=== PATIENT | female | born 1990 | race Caucasian/White ===

== ENCOUNTER → 2016-10-26 | Outpatient (CLI) | payer BC ==
--- NOTE | 2016-10-27 15:23 | US ---
EXAMINATION TYPE: US thyroid st tissue head/neck DATE OF EXAM: 10/26/2016 5:05 PM COMPARISON: NONE CLINICAL HISTORY: E04.1 Nontoxic single thyroid nodule. Midline neck tenderness GLAND SIZE: Right Lobe: 5.9 x 2.4 x 1.5 cm Overall Parenchyma: heterogenous Left Lobe: 5.8 x 2.4 x 1.8 cm Overall Parenchyma: heterogeneous Isthmus Thickness: 0.5 cm NODULES RIGHT: # of nodules measured on right: 0 LEFT: # of nodules measured on left: 1 1. 1.1 X 0.6 x 0.4 cm hypoechoic mixed nodule at the lower pole with well-defined margins. This no dule is wider than tall and shows no intranodular vascularity. ISTHMUS: # of nodules measured superior to the isthmus: 1 1. 0.6 X 0.7 x 0.3 cm cystic structure noted anterior to thyroid border. Bilateral neck scanned, no evidence of lymphadenopathy. IMPRESSION: Small bilateral thyroid nodules
== END | disposition home or self-care (01) ==
LOC: RADUSWWP 16:41
PROVIDERS: ATTEND Otolaryngology
DX: E04.2 Nontoxic multinodular goiter (principal)
CPT/HCPCS: 76536

== ENCOUNTER → 2016-10-30 | Outpatient (CLI) | payer BC | END | disposition home or self-care (01) | LOC: LABWHC1 16:18 | PROVIDERS: ATTEND Otolaryngology | DX: E01.0 Iodine-deficiency related diffuse (endemic) goiter (principal) | CPT/HCPCS: 36415; 84439; 84443; 84481; 86376; 86800 ==

== ENCOUNTER 2019-07-28 11:46 | Inpatient (IN) | payer BC ==
[2019-08-04] MEDS ORDERED: DINOPROSTONE 10 MG INSERT.ER VAGINAL ONE (19:47)
[2019-08-04] MEDS ORDERED: TERBUTALINE 1 MG/ML VIAL SQ PRN (20:13)
[2019-08-04] MEDS ORDERED: CARBOPROST TROMETHAMINE 250 MCG/ML 1 ML AMP IM PRN (20:13)
[2019-08-04] MEDS ORDERED: METHYLERGONOVINE 0.2 MG/ML 1 ML AMP IM PRN (20:13)
[2019-08-04] MEDS ORDERED: LIDOCAINE 0.5% (PF) 5 MG/ML (50 ML SDV) SQ PRN (20:13)
[2019-08-04] MEDS ORDERED: OXYTOCIN 10 UNIT/ML 1 ML VIAL IM PRN (20:13)
[2019-08-04] MEDS ORDERED: BUTORPHANOL 1 MG/ML 1 ML VIAL IV PRN (20:21)
--- NOTE | 2019-08-04 20:21 | P.HPOB ---
History of Present Illness H&P Date: 08/04/19 Chief Complaint: 41-0/7 weeks, unfavorable cervix, induction The patient is a 29-year-old 1 para 0 admitted at 41-0/7 as established by last menstrual period and confirmed by 19 week ultrasound. She is admitted for Cervidil cervical ripening to be followed by Pitocin induction if necessary. Her has been entirely uncomplicated aside from a finding of a large for gestational age fetus growing at the 94th percentile at 35 weeks. Group B strep status is negative. On labor and delivery, all signs are reassuring. Obstetrical history: 1 para 0 with current statistics listed in history of present illness. EDC of 07/28/2019 was established by last menstrual period and confirmed by 19 week ultrasound. Laboratory workup demonstrates a blood type of A+ with a negative antibody screen. Rubella status is immune. The remainder of the laboratory workup was within normal limits. One hour Glucola was normal and group B strep status is negative. Gynecologic history: Unremarkable with no history of any infections to include STDs. Review of Systems Review of systems is confined to history of present illness. Past Medical History Past Medical History: No Reported History Additional Past Medical History / Comment(s): CONSTIPATION , BLOOD IN STOOL. History of Any Multi-Drug Resistant Organisms: None Reported Additional Past Surgical History / Comment(s): TUBES IN EARS A CHILD, WISDOM TEETH Past Anesthesia/Blood Transfusion Reactions: Motion Sickness, No Reported Reaction Past Psychological History: No Psychological Hx Reported Smoking Status: Never smoker Past Alcohol Use History: Rare Past Drug Use History: None Reported - Past Family History Mother Family Medical History: No Reported History Medications and Allergies Home Medications Medication Instructions Recorded Confirmed Type Pnv No.95/Ferrous Fum/Folic AC 1 tab .ROUTE ONCE 08/04/19 08/04/19 History [ Multivitamin Tablet] Allergies Allergy/AdvReac Type Severity Reaction Status Date / Time No Known Allergies Allergy Verified 08/04/19 19:16 Exam Vital Signs Temp Pulse Resp BP Pulse Ox 08/04/19 19:18 97.5 F L 79 16 128/73 97 08/04/19 19:14 97.5 F L 79 16 128/73 97 Intake and Output 08/04/19 08/04/19 08/04/19 06:59 14:59 22:59 Other: Weight 98.883 kg In general, this is a well-developed, well-nourished white female in no acute distress. Her heart has a regular rhythm and rate without murmur. Her lungs are clear to auscultation bilaterally in all loomis. Her abdomen is gravid, nondistended, has normal active bowel sounds, is soft, nontender, and without any palpable masses aside from the uterine fundus. Her extremities are without any cyanosis, clubbing, or significant edema and are nontender to palpation bi laterally. Digital cervical examination demonstrates her cervix to be 1 cm dilated, approximately 50% effaced, with the vertex in presentation at -3 station. The cervix is quite posterior as well. Cervidil is placed in the posterior fornix behind the cervix in standard fashion. Assessment and Plan (1) Unfavorable cervix in term Current Visit: Yes Status: Acute Code(s): O34.40 - MATERNAL CARE FOR OTH ABNLT OF CERVIX, UNSP TRIMESTER SNOMED Code(s): 613227096 (2) Post-dates Current Visit: Yes Status: Acute Code(s): O48.0 - POST-TERM SNOMED Code(s): 53332327 Plan: The patient has been admitted for Cervidil cervical ripening to be followed by Pitocin induction is necessary. She will have close maternal and surveillance and expectant management will be practiced. An IV has been established for whenever it becomes necessary. She is a good candidate for either IV or epidural analgesia, whichever she may choose. The risks and complications of the induction process have been thoroughly discussed and she understands the risk for tachysystole. She also understands the potential risk for delivery, especially given the estimated size of the fetus.
[2019-08-04 20:28] LABS: Basophils % (A) 0 %; Eosinophils # (A) 0.1 k/uL (0-0.7); Eosinophils % (A) 1 %; HCT 38.8 % (34.0-46.0); HGB 12.8 gm/dL (11.4-16.0); Lymphocytes # (A) 1.9 k/uL (1.0-4.8); Lymphocytes % (A) 17 %; MCH 28.2 pg (25.0-35.0); MCV 85.3 fL (80.0-100.0); Mean Platelet Volume 7.1; Monocytes # (A) 0.8 k/uL (0-1.0); Monocytes % (A) 7 %; Neutrophils # (A) 8.4 k/uL (1.3-7.7); Neutrophils % (A) 73 %; Platelet Count 367 k/uL (150-450); RBC 4.54 m/uL (3.80-5.40); WBC 11.5 k/uL (3.8-10.6)
[2019-08-04] MEDS: guaiFENesin SYRUP 100MG/5ML 200 MG/10 ML CUP PO PRN (22:43)
[2019-08-04] MEDS: BENZOCAINE/MENTHOL LOZENG 1 EACH LOZENGE MUCOUS MEM PRN (22:44)
[2019-08-05] MEDS: OXYTOCIN 30 UNITS/500 ML NS 30 UNIT in SALINE 1 500ML.BAG IV SCH (05:38)
[2019-08-05] MEDS: LACTATED RINGERS 1,000 ML IV SCH ×2 (09:29→23:00)
[2019-08-05] MEDS ORDERED: fentaNYL (PF) 50 MCG/ML 5 ML AMP ONE (10:12)
[2019-08-05] MEDS ORDERED: ROPIVACAINE 5MG/ML 20ML VIAL ONE (10:12)
[2019-08-05] MEDS ORDERED: SODIUM CHLORIDE 0.9% 100 ML BAG ONE (10:12)
[2019-08-05] MEDS ORDERED: LACTATED RINGERS 1,000 ML IV ONE (16:48)
[2019-08-05] MEDS ORDERED: CITRIC ACID-SODIUM CITRATE 15 ML CUP PO ONE (16:48)
[2019-08-05] MEDS ORDERED: PROPOFOL 10 MG/ML 20 ML VIAL IV ONE (16:59)
[2019-08-05] MEDS ORDERED: MORPHINE SULFATE (PF) 0.3 MG/0.3 ML SYR ONE (16:59)
[2019-08-05] MEDS ORDERED: KETOROLAC 30 MG/ML 1 ML VIAL ONE (16:59)
[2019-08-05] MEDS ORDERED: SUCCINYLCHOLINE CHLORIDE 100 MG/5 ML SYR IV ONE (16:59)
[2019-08-05] MEDS ORDERED: OXYTOCIN 10 UNIT/ML 1 ML VIAL ONE (16:59)
[2019-08-05] MEDS ORDERED: ONDANSETRON 4 MG/2 ML VIAL ONE (16:59)
[2019-08-05] MEDS ORDERED: ZOLPIDEM 5 MG TAB PO PRN (18:03)
[2019-08-05] MEDS ORDERED: HYDROcodone/APAP 7.5-325MG 1 EACH TAB PO PRN (18:03)
[2019-08-05] MEDS ORDERED: diphenhydrAMINE 50 MG CAP PO PRN (18:03)
[2019-08-05] MEDS ORDERED: LANOLIN CREAM 5 GM TUBE TOPICAL PRN (18:03)
[2019-08-05] MEDS ORDERED: diphenhydrAMINE 25 MG CAP PO PRN (18:03)
[2019-08-05] MEDS ORDERED: ONDANSETRON 4 MG/2 ML VIAL IVP PRN (18:03)
[2019-08-05] MEDS ORDERED: SIMETHICONE 80 MG CHEWABLE PO PRN (18:03)
[2019-08-05] MEDS ORDERED: ACETAMINOPHEN TAB 325 MG TAB PO PRN (18:03)
[2019-08-05] MEDS ORDERED: METOCLOPRAMIDE 5 MG/ML 2 ML VIAL IVP PRN (18:03)
[2019-08-05] MEDS ORDERED: diphenhydrAMINE 50 MG/ML 1 ML VIAL IVP PRN ×2 (18:03)
[2019-08-05] MEDS ORDERED: NALOXONE 0.4 MG/ML 1 ML VIAL IV PRN (18:03)
--- NOTE | 2019-08-05 18:13 | P.OP ---
Date of Procedure: 08/05/19 Preoperative Diagnosis: #1. 41 and one sevenths weeks, arrest of descent in the second stage #2. intolerance of the second stage of labor #3. Suspected macrosomia Postoperative Diagnosis: Same plus #4. left occiput posterior position Procedure(s) Performed: #1. Primary low-transverse section Anesthesia: GETA, other (Failed epidural) Surgeon: Reza Turner Waist Pleater #1: Dary Jacobs Estimated Blood Loss (ml): 400 IV fluids (ml): 1,200 Urine output (ml): 200 Pathology: none sent Condition: stable Disposition: floor Operative Findings: Preoperatively, the patient had reached complete and was pushing relatively effectively though there was still a moderate amount of pushing remaining. The station was at +2 or slightly lower. However, following each push, heart tones elevated into the 190-200 range demonstrating intolerance of labor. As she was still somewhat remote from delivery and intolerance was noted, the decision was made to proceed with primary low transverse section. She was taken to the operating room where she was delivered of a viable 9 lbs. 1 oz. baby girl with Apgars of 9 at 1 minute and 9 at 5 minutes delivered in the left occiput posterior position. The head was deep within the pelvis with a significant amount At. The placenta was delivered manually, intact, and grossly normal with a grossly normal three-vessel cord. The uterus, tubes, and ovaries were entirely normal to inspection aside from some endosalpingiosis on the posterior side of the uterus. There was some bloody urine noted at the time of delivery, almost certainly secondary to my delivering and deep in the pelvis between the head and the Farrell catheter bulb. By the end of the case, the urine had cleared and inspection of the bladder demonstrated to be far distal from the site of the incisions. Description of Procedure: The patient was prepped and draped in usual fashion after epidural anesthesia was bolused by the anesthesiologist. After approximately 10 minutes, adequate levels of anesthesia could not be obtained and the decision was made proceed with general endotracheal anesthesia. Following the placement of the endotracheal tube, a Pfannenstiel incision was made and extended into the abdominal cavity without difficulty. The bladder perineum was elevated, incised, and reflected distally. A 2 cm incision was made in the transverse plane of the lower uterine segment to enter the uterus at which time there was clear but somewhat turbid-appearing fluid. The incision was extended in both directions using the bandage scissors. The head was encountered deep within the pelvis and was elevated directly upward until it was able to be flexed forward and through the incision where, upon delivery, the nose and mouth were thoroughly suctioned. The remainder of the was delivered onto the field where the cord was doubly clamped, cut, and the infant passed resuscitativ e measures with weight and Apgars as noted above. The placenta was delivered manually and intact as noted above. The uterus was exteriorized and the interior cavity of the uterus swept of any remaining placental or membranous fragments. The margins of the incision were noted to be extended slightly on both sides but not into the uterine vessels nor towards the bladder. The margins were grasped with Moore clamps and the incision closed in 2 layers. The first layer was a running locking stitch of 0 chromic catgut from margin to margin. The second layer was a running imbricating layer of 0 chromic catgut from margin to margin. Examination of the incision appeared to demonstrate excellent hemostasis. The posterior cul-de-sac was suctioned with a guard and the uterine and ovarian findings were as noted above. Uterus was replaced within the abdominal cavity and the gutters were swept of any remaining blood, fluid, or clot. Reexamination of the uterine incision demonstrated excellent hemostasis. The parietal peritoneum was loosely reapproximated in the layer of muscles examined and made hemostatic with the Bovie. The fascia was closed with a single running stitch of 0 Vicryl proceeding from lateral margin to lateral margin. The subcutaneous tissues were examined and made hemostatic with the Bovie then reapproximated with a running stitch of 3-0 plain catgut. The skin was reapproximated with a running subcuticular stitch of 4-0 Vicryl. This was followed by half-inch Steri-Strips placed with Mastisol. Estimated blood loss for the case was approximate 400 mL's. There were no complications aside from the failed epidural. All sponge, instrument, and needle counts were correct. The patient tolerated the procedure well and proceeded to the recovery room in stable condition.
[2019-08-05] MEDS ORDERED: OXYTOCIN 20 UNITS/1000 ML NS 1,000 ML IV SCH (18:15)
[2019-08-05] MEDS: BENZOCAINE/MENTHOL LOZENG 1 EACH LOZENGE MUCOUS MEM PRN ×2 (19:00→23:08)
[2019-08-05] MEDS: guaiFENesin SYRUP 100MG/5ML 200 MG/10 ML CUP PO PRN (23:09)
[2019-08-06] MEDS: KETOROLAC 30 MG/ML 1 ML VIAL IVP PRN ×2 (00:03→06:01)
[2019-08-06 06:53] LABS: Basophils % (A) 0 %; Eosinophils # (A) 0.1 k/uL (0-0.7); Eosinophils % (A) 0 %; HCT 34.6 % (34.0-46.0); HGB 11.4 gm/dL (11.4-16.0); Lymphocytes # (A) 1.3 k/uL (1.0-4.8); Lymphocytes % (A) 7 %; MCH 28.1 pg (25.0-35.0); MCV 85.1 fL (80.0-100.0); Mean Platelet Volume 7.1; Monocytes # (A) 0.9 k/uL (0-1.0); Monocytes % (A) 5 %; Neutrophils # (A) 14.6 k/uL (1.3-7.7); Neutrophils % (A) 85 %; Platelet Count 311 k/uL (150-450); RBC 4.07 m/uL (3.80-5.40); RDW 14.2 % (11.5-15.5); WBC 17.2 k/uL (3.8-10.6)
[2019-08-06] MEDS: SENNOSIDES-DOCUSATE SODIUM 1 EACH TAB PO SCH ×3 (07:14→20:12)
[2019-08-06] MEDS: BENZOCAINE/MENTHOL LOZENG 1 EACH LOZENGE MUCOUS MEM PRN ×3 (08:11→22:48)
[2019-08-06] MEDS: guaiFENesin SYRUP 100MG/5ML 200 MG/10 ML CUP PO PRN (08:12)
--- NOTE | 2019-08-06 08:46 | P.PNOBGPC ---
Subjective - Subjective Patient reports: Reports appetite normal, Reports voiding normally, Reports pain well controlled, Reports ambulating normally : doing well, nursing well Objective - Vital Signs Latest vital signs: Vital Signs Temp Pulse Resp BP Pulse Ox 08/06/19 07:33 97.7 F 84 17 119/62 94 L 08/06/19 04:00 97.8 F 89 16 137/83 08/06/19 00:00 98.8 F 104 H 16 123/78 96 08/05/19 19:59 97.8 F 85 16 127/72 96 08/05/19 19:29 98.5 F 93 16 134/75 97 08/05/19 18:59 85 16 134/68 97 08/05/19 18:44 83 16 140/73 97 08/05/19 18:29 93 16 126/73 97 08/05/19 18:14 93 16 138/68 97 08/05/19 17:59 98.2 F 95 18 128/63 97 Intake and Output 08/05/19 08/06/19 08/06/19 22:59 06:59 14:59 Intake Total 1000 Output Total 648 350 Balance -648 -350 1000 Intake: IV 1000 Invasive Line 1 1000 Output: Urine 400 350 Estimated Blood Loss 248 Other: Voiding Method Indwelling Catheter - Exam Extremities: Present: normal Abdomen: Present: normal appearance, soft. Absent: distention, tenderness Incision: Present: normal, dry, intact Uterus: Present: normal, firm (The uterine fundus is tonic and appropriately tender around the umbilicus) - Labs Labs: Abnormal Lab Results - Last 24 Hours (Table) 08/06/19 Range/Units 06:21 WBC 17.2 H (3.8-10.6) k/uL Neutrophils # 14.6 H (1.3-7.7) k/uL Assessment and Plan (1) Unfavorable cervix in term Current Visit: Yes Status: Acute Code(s): O34.40 - MATERNAL CARE FOR OTH ABNLT OF CERVIX, UNSP TRIMESTER SNOMED Code(s): 642572464 (2) Post-dates Current Visit: Yes Status: Acute Code(s): O48.0 - POST-TERM SNOMED Code(s): 19755790 (3) Status post section Current Visit: Yes Status: Acute Code(s): Z98.891 - HISTORY OF UTERINE SCAR FROM PREVIOUS SURGERY SNOMED Code(s): 833687923 Plan: Continue routine postoperative care. I strongly encouraged the patient in the hallways at least 4 times daily. Her diet will be advanced to regular. Anticipate possible discharge home tomorrow pending no complications.
[2019-08-06] MEDS: IBUPROFEN 600 MG TAB PO PRN (12:05)
[2019-08-06] MEDS: HYDROcodone/APAP 5-325MG 1 EACH TAB PO PRN (15:10)
[2019-08-06] MEDS: LACTATED RINGERS 1,000 ML IV SCH ×4 (20:09→20:54)
[2019-08-06] MEDS: OXYTOCIN 30 UNITS/500 ML NS 30 UNIT in SALINE 1 500ML.BAG IV SCH (20:11)
[2019-08-07 00:39] VITALS: BP 140/75
[2019-08-07] MEDS: IBUPROFEN 600 MG TAB PO PRN ×2 (01:16→07:41)
[2019-08-07] MEDS: SENNOSIDES-DOCUSATE SODIUM 1 EACH TAB PO SCH (07:42)
[2019-08-07 08:04] VITALS: PULSE 142; RESP 52; TEMP 98.7
--- NOTE | 2019-08-07 08:36 | P.DS ---
Providers Date of admission: 08/04/19 19:09 Expected date of discharge: 08/07/19 Attending physician: Reza Turner Primary care physician: Farzana Junior - Discharge Diagnosis(es) (1) Unfavorable cervix in term Current Visit: Yes Status: Acute (2) Post-dates Current Visit: Yes Status: Acute (3) Status post section Current Visit: Yes Status: Acute Hospital Course: The patient is a 29-year-old 1 para 0 admitted at 41-0/7 weeks by good dating parameters perches admitted for Cervidil cervical ripening followed by Pitocin induction. Her was uncomplicated and group B strep status is negative. She did have a baby growing at the 94th percentile at 35 weeks. On labor and delivery, all signs reassuring. She had Cervidil placed which remained in place for approximately 6-8 hours after which time it actually fell out. She had Pitocin augmentation started early in the morning after which time artificial rupture of membranes is carried out demonstrating clear fluid. She made progress in the active phase of labor and had an epidural catheter placed. She ultimately progressed to complete and began pushing at which time the fetus began to have significant overshot on heart tones after each contraction with heart tones rising into the 190s to 200s. As she was still somewhat remote from delivery, the decision was made to proceed to section. She was taken the operating room where she underwent primary low-transverse section was delivered of a viable 9 lbs. 1 oz. baby girl with Apgars of 9 at 1 minute and 9 at 5 minutes. Her and postoperative courses were unremarkable with vital signs being stable and her temperature was afebrile throughout. She was deemed stable for discharge on postoperative day #2 was discharged home to follow-up in the office in 2 weeks for an incision check and 6 weeks routinely. Discharge instructions included calling for any significantly increased bleeding or foul-smelling lochia, significantly increased fever abdominal pain, perineal complaints, breast complaints, incisional complaints, or anything else that concerned her. She is additionally instructed to have nothing in vagina for at least 6 weeks time to include intercourse. She understood all of her instructions and agrees to follow up as noted above. Discharge medications included a prescription for Tylenol 3, 1-2 by mouth every 6 hours when necessary pain, #20 dispensed with no refills. She was additionally to use [id number]-[id number]-idfarls analgesics as needed. She was also to continue to take vitamins as she has opted to breast-feed. Maternal blood type is A+ and rubella status is immune. Discharge hemoglobin and hematocrit were 11.4 and 34.6 respectively. Procedures: #1. Cervidil cervical ripening #2. Pitocin augmentation of #3. Artificial rupture of membranes #4. Epidural analgesia #5. Primary low-transverse section Patient Condition at Discharge: Good Plan - Discharge Summary New Discharge Prescriptions: No Action Pnv No.95/Ferrous Fum/Folic AC [ Multivitamin Tablet] 1 tab .ROUTE ONCE Discharge Medication List Pnv No.95/Ferrous Fum/Folic AC [ Multivitamin Tablet] 1 tab .ROUTE ONCE 08/04/19 [History] Follow up Appointment(s)/Referral(s): Reza Turner MD [STAFF PHYSICIAN] - 2 Weeks Discharge Disposition: HOME SELF-CARE
[2019-08-07] MEDS: HYDROcodone/APAP 5-325MG 1 EACH TAB PO PRN (12:19)
== END 2019-08-07 13:20 | disposition home or self-care (01) | DRG 788 ==
LOC: 4FBP 08-04 19:09
PROVIDERS: ADMIT Obstetrics & Gynecology; ATTEND Obstetrics & Gynecology
PROC: 3E033VJ Introduction of Other Hormone into Peripheral Vein, Percutaneous Approach (ICD-10-PCS; 2019-08-04)
PROC: 3E0P7VZ Introduction of Hormone into Female Reproductive, Via Natural or Artificial Opening (ICD-10-PCS; 2019-08-04)
PROC: 3E0R3BZ Introduction of Anesthetic Agent into Spinal Canal, Percutaneous Approach (ICD-10-PCS; principal; 2019-08-05 17:16)
PROC: 10D00Z1 Extraction of Products of Conception, Low, Open Approach (ICD-10-PCS; principal; 2019-08-05 17:16)
PROC: 00HU33Z Insertion of Infusion Device into Spinal Canal, Percutaneous Approach (ICD-10-PCS; principal; 2019-08-05 17:16)
PROC: 10907ZC Drainage of Amniotic Fluid, Therapeutic from Products of Conception, Via Natural or Artificial Opening (ICD-10-PCS; principal; 2019-08-05 17:16)
DX: O48.0 Post-term pregnancy (principal); K21.9 Gastro-esophageal reflux disease without esophagitis; O99.62 Diseases of the digestive system complicating childbirth; O36.63X0 Maternal care for excessive fetal growth, third trimester, not applicable or unspecified; O62.1 Secondary uterine inertia; O77.9 Labor and delivery complicated by fetal stress, unspecified; N94.89 Other specified conditions associated with female genital organs and menstrual cycle; R31.9 Hematuria, unspecified; Z3A.41 41 weeks gestation of pregnancy; Z37.0 Single live birth; Z79.899 Other long term (current) drug therapy; Z87.19 Personal history of other diseases of the digestive system
CPT/HCPCS: 85025; 86850; 86900; 86901

== ENCOUNTER 2021-03-15 11:11 | Emergency (ER) | payer BC ==
[2021-03-15 11:28] VITALS: RESP 18
[2021-03-15] MEDS ORDERED: SODIUM CHLORIDE 0.9% 1,000 ML IV STA (12:19)
[2021-03-15] MEDS ORDERED: ONDANSETRON 4 MG/2 ML VIAL IVP STA (12:19)
[2021-03-15 12:43] LABS: Basophils # (A) 0.1 k/uL (0-0.2); Basophils % (A) 0 %; Eosinophils # (A) 0.1 k/uL (0-0.7); Eosinophils % (A) 1 %; HCT 40.9 % (34.0-46.0); HGB 13.7 gm/dL (11.4-16.0); Lymphocytes # (A) 1.6 k/uL (1.0-4.8); Lymphocytes % (A) 15 %; MCH 28.7 pg (25.0-35.0); MCHC 33.6 g/dL (31.0-37.0); MCV 85.5 fL (80.0-100.0); Mean Platelet Volume 6.5; Monocytes # (A) 0.6 k/uL (0-1.0); Monocytes % (A) 5 %; Neutrophils # (A) 8.7 k/uL (1.3-7.7); Neutrophils % (A) 78 %; Platelet Count 389 k/uL (150-450); RBC 4.79 m/uL (3.80-5.40); RDW 11.7 % (11.5-15.5); WBC 11.1 k/uL (3.8-10.6)
[2021-03-15 12:57] LABS: ALT 14 U/L (4-34); AST 20 U/L (14-36); African American GFR (CKD) >90 (>60 ml/min/1.73 sqM); Albumin 4.4 g/dL (3.5-5.0); Alkaline Phosphatase 55 U/L (38-126); Anion Gap 10 mmol/L; Blood Urea Nitrogen 10 mg/dL (7-17); Calcium 9.8 mg/dL (8.4-10.2); Carbon Dioxide 25 mmol/L (22-30); Chloride 102 mmol/L (98-107); Glucose 88 mg/dL (74-99); Non-African American GFR(CKD) >90 (>60 ml/min/1.73 sqM); Potassium 4.3 mmol/L (3.5-5.1); Sodium 137 mmol/L (137-145); Total Bilirubin 1.3 mg/dL (0.2-1.3); Total Protein 7.3 g/dL (6.3-8.2)
[2021-03-15] MEDS ORDERED: METOCLOPRAMIDE 5 MG/ML 2 ML VIAL IVP STA (13:13)
[2021-03-15 13:37] LABS: Appearance,Urine Cloudy (Clear); Bacteria,Urine Moderate /hpf; Bilirubin,Urine Negative (Negative); Blood,Urine Negative (Negative); Color,Urine Yellow; Glucose,Urine (UA) Negative (Negative); Ketones,Urine 3+ (Negative); Leukocyte Esterase,Urine Large (Negative); Mucus,Urine Many /hpf; Nitrite,Urine Negative (Negative); PH, Urine 5.5 (5.0-8.0); Protein,Urine 1+ (Negative); RBC,Urine 11 /hpf (0-5); Specific Gravity,Urine 1.034 (1.001-1.035); Squamous Epithelial Cell,Urine 3 /hpf (0-4); WBC,Urine 36 /hpf (0-5)
--- NOTE | 2021-03-15 14:23 | ED ---
Nausea/Vomiting/Diarrhea HPI - General Chief complaint: Nausea/Vomiting/Diarrhea Stated complaint: 9wks preg, vomiting Time Seen by Provider: 03/15/21 11:50 Source: patient, RN notes reviewed, old records reviewed Mode of arrival: ambulatory Limitations: no limitations - History of Present Illness Initial comments: Patient is a 30-year-old female presenting to the emergency department, currently 8 weeks , presenting for nausea and vomiting over the past few days. She states she's been having some mild nausea with this but has not been vomiting until about 3 days ago. . She has been unable keep down any liquid or food for the last 3 days. She denies any abdominal pain, no vaginal bleeding. She believes she is about 8 weeks along, has an appointment with her COMMUTATOR OPERATOR in a few weeks. She'll be seeing Dr. Turner's group. He denies history of abdominal surgeries. She denies any dysuria or frequency, no diarrhea. She denies any fevers or chills, no cough or congestion, no chest pain or shortness of breath. He has no further complaints at this time. Her vitals are stable upon arrival. - Related Data Home Medications Medication Instructions Recorded Confirmed Doxylamine Succinate [Unisom] 25 mg PO HS PRN 03/15/21 03/15/21 Previous Rx's Medication Instructions Recorded Cephalexin [Keflex] 500 mg PO Q6HR 7 Days #28 cap 03/15/21 Ondansetron Odt [Zofran Odt] 4 mg PO Q8HR PRN #10 tab 03/15/21 Allergies Allergy/AdvReac Type Severity Reaction Status Date / Time No Known Allergies Allergy Verified 03/15/21 13:15 Review of Systems ROS Statement: Those systems with pertinent positive or pertinent negative responses have been documented in the HPI. ROS Other: All systems not noted in ROS Statement are negative. Past Medical History Past Medical History: No Reported History Additional Past Medical History / Comment(s): CONSTIPATION , BLOOD IN STOOL. History of Any Multi-Drug Resistant Organisms: None Reported Additional Past Surgical History / Comment(s): TUBES IN EARS A CHILD, WISDOM TEETH Past Anesthesia/Blood Transfusion Reactions: Motion Sickness, No Reported Reaction Past Psychological History: No Psychological Hx Reported Smoking Status: Never smoker Past Alcohol Use History: Rare Past Drug Use History: None Reported - Past Family History Mother Family Medical History: No Reported History General Exam - General Exam Comments Initial Comments: GENERAL: Patient is well-developed and well-nourished. Patient is nontoxic and in no acute distress. HEAD: Atraumatic, normocephalic. EYES: Pupils equal round and reactive to light, extraocular movements intact, sclera anicteric, conjunctiva are normal. Eyelids were unremarkable. ENT: Nares patent, oropharynx clear without exudates. Moist mucous membranes. NECK: Normal range of motion, supple without lymphadenopathy or JVD. LUNGS: Unlabored respirations. Breath sounds clear to auscultation bilaterally and equal. No wheezes rales or rhonchi. HEART: Regular rate and rhythm without murmurs, rubs or gallops. ABDOMEN: Soft, nontender, normoactive bowel sounds. No guarding, no rebound. No masses appreciated. : Deferred MUSCULOSKELETAL: Normal extremities with adequate strength and normal range of motion, no pitting or edema. No clubbing or cyanosis. NEUROLOGICAL: Patient is alert and oriented x 3. SKIN: Warm, Dry, normal turgor, no rashes or lesions noted. Limitations: no limitations Course Vital Signs 03/15/21 11:23 Temperature 97.9 F Pulse Rate 74 Respiratory 18 Rate Blood Pressure 114/76 O2 Sat by Pulse 98 Oximetry Medical Decision Making - Medical Decision Making Patient is a 30-year-old female, currently 8 weeks , presenting for nausea and vomiting for the last 3 days. No fevers, vitals are stable. No ab dominal pain or vaginal bleeding. , COMMUTATOR OPERATOR is Dr. Turner. Labs are showing a slight white count 11.1, so most likely reactive, anything else is within normal limits. Urine shows 3+ ketones, 36 WBCs and moderate bacteria. Urine culture is pending. She did receive fluids and Zofran, she reports improvement in her symptoms. She is tolerating water and crackers at this time. Patient will be treated for UTI and given Zofran to go home with. She'll follow-up with her COMMUTATOR OPERATOR. She is agreeable to this and is stable for discharge. Case discussed with Dr. Kwon. - Lab Data Result diagrams: 03/15/21 12:22 03/15/21 12:22 Lab Results 03/15/21 03/15/21 03/15/21 Range/Units 12:22 12:22 12:22 WBC 11.1 H (3.8-10.6) k/uL RBC 4.79 (3.80-5.40) m/uL Hgb 13.7 (11.4-16.0) gm/dL Hct 40.9 (34.0-46.0) % MCV 85.5 (80.0-100.0) fL MCH 28.7 (25.0-35.0) pg MCHC 33.6 (31.0-37.0) g/dL RDW 11.7 (11.5-15.5) % Plt Count 389 (150-450) k/uL MPV 6.5 Neutrophils % 78 % Lymphocytes % 15 % Monocytes % 5 % Eosinophils % 1 % Basophils % 0 % Neutrophils # 8.7 H (1.3-7.7) k/uL Lymphocytes # 1.6 (1.0-4.8) k/uL Monocytes # 0.6 (0-1.0) k/uL Eosinophils # 0.1 (0-0.7) k/uL Basophils # 0.1 (0-0.2) k/uL Sodium 137 (137-145) mmol/L Potassium 4.3 (3.5-5.1) mmol/L Chloride 102 (98-107) mmol/L Carbon Dioxide 25 (22-30) mmol/L Anion Gap 10 mmol/L BUN 10 (7-17) mg/dL Creatinine 0.56 (0.52-1.04) mg/dL Est GFR (CKD-EPI)AfAm >90 (>60 ml/min/1.73 sqM) Est GFR (CKD-EPI)NonAf >90 (>60 ml/min/1.73 sqM) Glucose 88 (74-99) mg/dL Calcium 9.8 (8.4-10.2) mg/dL Total Bilirubin 1.3 (0.2-1.3) mg/dL AST 20 (14-36) U/L ALT 14 (4-34) U/L Alkaline Phosphatase 55 (38-126) U/L Total Protein 7.3 (6.3-8.2) g/dL Albumin 4.4 (3.5-5.0) g/dL Urine Color Yellow Urine Appearance Cloudy H (Clear) Urine pH 5.5 (5.0-8.0) Ur Specific [place] 1.034 (1.001-1.035) Urine Protein 1+ H (Negative) Urine Glucose (UA) Negative (Negative) Urine Ketones 3+ H (Negative) Urine Blood Negative (Negative) Urine Nitrite Negative (Negative) Urine Bilirubin Negative (Negative) Urine Urobilinogen 2.0 (<2.0) mg/dL Ur Leukocyte Esterase Large H (Negative) Urine RBC 11 H (0-5) /hpf Urine WBC 36 H (0-5) /hpf Ur Squamous Epith Cells 3 (0-4) /hpf Urine Bacteria Moderate H (None) /hpf Urine Mucus Many H (None) /hpf Disposition Clinical Impression: Dehydration, Nausea and vomiting during , UTI (urinary tract infection) Disposition: HOME SELF-CARE Condition: Stable Instructions (If sedation given, give patient instructions): Nausea and Vomiting in (ED) Additional Instructions: Please return to the Emergency Department if symptoms worsen or any other concerns. May take Zofran every 8 hours for nausea. Take antibiotic as prescribed. Follow-up with your COMMUTATOR OPERATOR. Prescriptions: Cephalexin [Keflex] 500 mg PO Q6HR 7 Days #28 cap Ondansetron Odt [Zofran Odt] 4 mg PO Q8HR PRN #10 tab PRN Reason: Nausea Is patient prescribed a controlled substance at d/c from ED?: No Referrals: Farzana Junior DO [Primary Care Provider] - 1-2 days Reza Turner MD [STAFF PHYSICIAN] - 1-2 days Time of Disposition: 14:31
[2021-03-15 14:57] VITALS: BP 103/53; PULSE 63; TEMP 98
== END 2021-03-15 14:56 | disposition home or self-care (01) ==
LOC: EC 11:11
DX: O21.9 Vomiting of pregnancy, unspecified (principal); O23.41 Unspecified infection of urinary tract in pregnancy, first trimester; O99.281 Endocrine, nutritional and metabolic diseases complicating pregnancy, first trimester; E86.0 Dehydration; Z3A.08 8 weeks gestation of pregnancy
CPT/HCPCS: 99284; 96374; 96375; 36415; 80053; 85025; 81001; 84702; 87086; J2765; J2405

== ENCOUNTER 2021-10-03 07:40 | Inpatient (IN) | payer BC ==
[2021-09-30 14:27] VITALS: BMI 32.1
[~2021-10-03 07:40] MED LIST: LACTATED RINGERS 1,000 ML BAG IV ONE
[2021-10-03 08:36] LABS: Basophils # (A) 0.1 k/uL (0-0.2); Basophils % (A) 1 %; Eosinophils # (A) 0.3 k/uL (0-0.7); Eosinophils % (A) 3 %; HCT 41.2 % (34.0-46.0); HGB 13.4 gm/dL (11.4-16.0); Lymphocytes # (A) 1.8 k/uL (1.0-4.8); Lymphocytes % (A) 17 %; MCH 29.2 pg (25.0-35.0); MCHC 32.6 g/dL (31.0-37.0); MCV 89.8 fL (80.0-100.0); Mean Platelet Volume 6.7; Monocytes # (A) 0.6 k/uL (0-1.0); Monocytes % (A) 5 %; Neutrophils # (A) 7.4 k/uL (1.3-7.7); Neutrophils % (A) 73 %; Platelet Count 381 k/uL (150-450); RBC 4.59 m/uL (3.80-5.40); RDW 12.7 % (11.5-15.5); WBC 10.3 k/uL (3.8-10.6)
[2021-10-03] MEDS ORDERED: ONDANSETRON 4 MG/2 ML VIAL ONE (09:44)
[2021-10-03] MEDS ORDERED: MORPHINE SULFATE (PF) 0.3 MG/0.3 ML SYR ONE (09:44)
[2021-10-03] MEDS ORDERED: NALBUPHINE 10 MG/ML (1 ML AMP) ONE (09:44)
[2021-10-03] MEDS ORDERED: PHENYLEPHRINE-0.9% NACL SYG 1,000 MCG/10 ML SYRINGE ONE (09:44)
[2021-10-03] MEDS ORDERED: ePHEDrine 50 MG/ML 1 ML VIAL ONE (09:44)
[2021-10-03] MEDS ORDERED: OXYTOCIN 30 UNITS/500 ML NS BAG IV ONE (09:44)
[2021-10-03] MEDS ORDERED: KETOROLAC 15 MG/ML 1 ML VIAL ONE (09:44)
--- NOTE | 2021-10-03 10:31 | HP ---
HISTORY AND PHYSICAL DATE OF DICTATION AND DATE OF ADMISSION: 10/03/2021 HISTORY OF PRESENT ILLNESS: The patient is a 31-year-old 2, para 1-0-0-1, admitted at 39 weeks of gestation as established by 11-week ultrasound. She is admitted for repeat low transverse section, having had a previous section. Her has been entirely uncomplicated and group B strep status is negative. On Labor and Delivery, all signs are reassuring with a category 1 heart rate tracing. The patient presented this morning for repeat section with documented spontaneous rupture of membranes and in early labor. PAST MEDICAL HISTORY: Noncontributory. PAST SURGICAL HISTORY: Previous section x1, as noted in history of present illness. She additionally had a colonoscopy in her history. There were no anesthetic concerns. OBSTETRICAL HISTORY: 2, para 1-0-0-1 with one previous term section without complications. Current statistics are listed in history of present illness. EDC of 10/30/2021 was determined by an 11-week ultrasound. Laboratory workup demonstrates a blood type of A positive with a negative antibody screen. Rubella status is immune. The remainder of the laboratory workup was within normal limits. One-hour Glucola was normal and group B strep status is negative. GYNECOLOGIC HISTORY: Unremarkable, with no history of any infections to include STDs. FAMILY HISTORY: Noncontributory. SOCIAL HISTORY: The patient is and a nonsmoker. REVIEW OF SYSTEMS: Confined to history of present illness. PHYSICAL EXAMINATION: Vital signs are stable. The patient is afebrile. In general this is a well-developed, well-nourished white female in no acute distress. Her heart has a regular rhythm and rate without murmur. Her lungs are clear to auscultation bilaterally in all loomis. Her abdomen is gravid, nondistended, has normoactive bowel sounds, is soft, nontender, and without any palpable masses aside from the uterine fundus. Her extremities are without any cyanosis, clubbing or edema and are nontender to palpation bilaterally. ASSESSMENT AND PLAN: Thirty-nine weeks, previous section, requesting repeat: The patient is admitted for repeat low transverse section. Risks and complications have been discussed at length and the patient has understood and agreed to proceed. MMODL / IJN: [id number] /
--- NOTE | 2021-10-03 11:22 | OP ---
OPERATIVE REPORT DATE OF DICTATION: 10/03/2021 SURGEON: Dr. Turner. REDRYING MACHINE OPERATOR: Dr. Jacobs. ANESTHESIA: Spinal. PREOPERATIVE DIAGNOSES: 1. Thirty-nine and 0/7 weeks. 2. Previous section x1, requesting repeat. POSTOPERATIVE DIAGNOSIS: 1. Thirty-nine and 0/7 weeks. 2. Previous section x1, requesting repeat. PROCEDURE: Repeat low-transverse section. FINDINGS: Intraoperatively, the patient was delivered of a viable 6-pound 12-ounce baby girl with Apgars of 9 at one minute and 10 at five minutes in the vertex presentation. The placenta was delivered manually, intact, and grossly normal with a grossly normal three- vessel cord. The uterus, tubes and ovaries were entirely normal to inspection, although there was some vascularity in the posterior lower uterine segment. PROCEDURE DESCRIPTION: The patient was prepped and draped in the usual fashion after spinal anesthesia was administered by the anesthesiologist. A Pfannenstiel incision was made through a pre- existing scar and extended into the abdominal cavity without difficulty. There was a mild to moderate amount of scarring at the level of the rectus muscles and fascia. The bladder peritoneum was significantly distal to the intended site of incision and was left intact. A 2 cm incision was made in the lower uterine segment to enter the uterus, which was noted to be very thick, and at which time there was clear fluid noted. The incision was extended in both directions using the bandage scissors. The head was delivered up and through the incision, where the nose and mouth were thoroughly suctioned. The remainder of the infant was delivered onto the field, where the cord was doubly clamped, cut, and the infant passed for resuscitative measures with weight and Apgars as noted above. A segment of cord was doubly clamped and set aside should cord gases become necessary. The placenta was delivered manually and intact, as noted above. The uterus was exteriorized and the interior cavity of the uterus swept of any remaining placental or membranous fragments. The margins of the uterine incision were grasped with Moore clamps and the incision closed in two layers. The first layer was a running locking stitch of 0 chromic catgut followed by a running imbricating stitch of 0 chromic catgut, each from margin to margin. The incision was noted to be hemostatic. The posterior cul-de-sac was suctioned with a guard followed by a laparotomy sponge. The uterus was re-placed within the abdominal cavity and the gutters were swept of any blood, fluid or clot. The incision was re-examined and found to be hemostatic. The parietal peritoneum was loosely reapproximated and the layer of muscles made hemostatic with the Bovie. The fascia was closed with two running stitches of 0 Vicryl proceeding from the lateral margins to the midpoint. The subcutaneous tissues were irrigated, made hemostatic with the Bovie, and reapproximated with a running stitch of 3-0 plain catgut. The incision was closed with a running subcuticular stitch of 4-0 Vicryl followed by half-inch Steri-Strips placed with Mastisol. Estimated blood loss for the case was approximately 300 mL. Quantitative blood loss was 292 mL. All sponge and instrument counts were correct. There were no complications. The patient tolerated the procedure well and proceeded to the recovery room in stable condition. Both mother and infant are resting comfortably in Recovery. MMODL / IJN: [id number] /
[2021-10-03] MEDS ORDERED: NALBUPHINE 10 MG/ML (1 ML AMP) IV PRN (12:47)
[2021-10-03] MEDS ORDERED: NALOXONE 0.4 MG/ML 1 ML VIAL IV PRN ×2 (12:47→13:32)
[2021-10-03] MEDS ORDERED: diphenhydrAMINE 50 MG/ML 1 ML VIAL IVP PRN ×3 (12:47→13:32)
[2021-10-03] MEDS ORDERED: ONDANSETRON 4 MG/2 ML VIAL IVP PRN ×2 (12:47→13:32)
[2021-10-03] MEDS ORDERED: KETOROLAC 15 MG/ML 1 ML VIAL IVP PRN (12:47)
[2021-10-03] MEDS ORDERED: METOCLOPRAMIDE 5 MG/ML 2 ML VIAL IVP PRN (12:47)
[2021-10-03] MEDS ORDERED: HYDROmorphone 2 MG TAB PO PRN (13:32)
[2021-10-03] MEDS ORDERED: diphenhydrAMINE 25 MG CAP PO PRN (13:32)
[2021-10-03] MEDS ORDERED: LANOLIN CREAM 5 GM TUBE TOPICAL PRN (13:32)
[2021-10-03] MEDS ORDERED: diphenhydrAMINE 50 MG CAP PO PRN (13:32)
[2021-10-03] MEDS ORDERED: ZOLPIDEM 5 MG TAB PO PRN (13:32)
[2021-10-03] MEDS ORDERED: OXYTOCIN 30 UNITS/500 ML NS 30 UNIT in SALINE 1 500ML.BAG IV SCH (13:45)
[2021-10-03] MEDS: METOCLOPRAMIDE 5 MG/ML 2 ML VIAL IVP PRN ×2 (15:42→23:42)
[2021-10-03] MEDS: KETOROLAC 15 MG/ML 1 ML VIAL IVP PRN (16:44)
[2021-10-03] MEDS: LACTATED RINGERS 1,000 ML IV SCH ×2 (19:27→20:40)
[2021-10-03] MEDS: SENNOSIDES-DOCUSATE SODIUM 1 EACH TAB PO SCH (20:39)
[2021-10-03] MEDS: ACETAMINOPHEN TAB 500 MG TAB PO SCH (20:39)
[2021-10-04] MEDS: IBUPROFEN 600 MG TAB PO SCH ×4 (02:18→20:03)
[2021-10-04] MEDS: ACETAMINOPHEN TAB 500 MG TAB PO SCH ×4 (02:18→19:38)
[2021-10-04] MEDS: KETOROLAC 15 MG/ML 1 ML VIAL IVP PRN (04:05)
[2021-10-04] MEDS: LACTATED RINGERS 1,000 ML IV SCH ×2 (04:06→19:38)
--- NOTE | 2021-10-04 08:34 | P.PNOBGPC ---
Subjective - Subjective Interval history: The patient reports that she has had significant vomiting overnight but now has begun to tolerate liquids though this morning. She additionally has been unable to void on her own since removal of the catheter last night. Patient reports: Reports appetite normal, Reports pain well controlled, Reports ambulating normally [place]: doing well Objective - Vital Signs Latest vital signs: Vital Signs Temp Pulse Resp BP Pulse Ox 10/04/21 07:43 98.2 F 63 18 98/49 10/04/21 04:00 98.4 F 61 16 104/60 96 10/04/21 00:00 98.7 F 53 L 16 100/58 97 10/03/21 20:00 97.8 F 54 L 16 107/65 97 10/03/21 16:00 97.4 F L 56 L 16 106/50 96 Intake and Output 10/03/21 10/04/21 10/04/21 22:59 06:59 14:59 Intake Total 1700 Output Total 750 500 Balance 950 -500 Intake: IV 1700 Output: Urine 350 300 Emesis 400 200 Other: Voiding Method Indwelling Catheter # Voids 0 - Exam Extremities: Present: normal Abdomen: Present: normal appearance, soft. Absent: distention, tenderness Incision: Present: normal, dry, intact Uterus: Present: normal, firm (The uterine fundus is tonic and a perfectly tender below the umbilicus.) Assessment and Plan (1) Status post section Current Visit: No Status: Acute Code(s): Z98.891 - HISTORY OF UTERINE SCAR FROM PREVIOUS SURGERY SNOMED Code(s): 721653188 Plan: Continue routine postoperative care. I have encouraged patient to attempt to urinate in the shower this morning. I would anticipate resolution of her nausea and being able to advance her diet without difficulty. I also encouraged her to continue to ambulate in the hallways. Pending no further complications, I would anticipate discharge home tomorrow.
[2021-10-04] MEDS: SENNOSIDES-DOCUSATE SODIUM 1 EACH TAB PO SCH ×3 (08:35→20:03)
--- NOTE | 2021-10-04 08:36 | P.PN ---
Progress Note - Text Progress Note Date: 10/04/21 Postoperative day 1 status post section under spinal anesthesia, and i ntrathecal morphine given for postoperative analgesia, patient doing well, there is no anesthesia related complications, Patient had no headache, vital signs stable , Assessment and plan= postop day 1 status post , doing well there is no anesthesia related complication.. note= patient was seen at 0650 today
[2021-10-04] MEDS: SIMETHICONE 80 MG CHEWABLE PO PRN ×2 (14:09→20:03)
[2021-10-04 15:19] VITALS: RESP 16
[2021-10-05] MEDS: ACETAMINOPHEN TAB 500 MG TAB PO SCH ×3 (00:46→13:46)
[2021-10-05] MEDS: HYDROmorphone 2 MG TAB PO PRN ×2 (01:11→05:12)
[2021-10-05] MEDS: IBUPROFEN 600 MG TAB PO SCH ×3 (04:03→15:38)
[2021-10-05 07:55] VITALS: BP 117/74; PULSE 77; TEMP 98.3
--- NOTE | 2021-10-05 08:43 | P.DS ---
Providers Date of admission: 10/03/21 07:40 Expected date of discharge: 10/05/21 Attending physician: Reza Turner Primary care physician: Farzana Junior - Discharge Diagnosis(es) (1) Status post section Current Visit: Yes Status: Acute Hospital Course: The patient is a 31-year-old 2 para 1001 admitted at 39-0/7 weeks by good dating parameters perches admitted for repeat low transverse section having had a previous section. Her was uncomplicated and group B strep status is negative. She was taken the operating room where she was delivered by repeat low transverse section of a viable 6 lbs. 12 oz. baby girl with Apgars of 9 at 1 minute and 10 at 5 minutes. The patient's and postoperative course were unremarkable though she did have moderate nausea for the entirety of daily surgery and through the first night after which time a result. She was tolerating regular diet by the morning of postoperative day #1 and the was ultimately deemed stable for discharge on postoperative day #2. She was discharged home to follow-up in the office in 2 weeks for an incision check and 6 weeks routinely. Discharge instructions included calling for any significantly increased bleeding or foul-smelling lochia, significantly increased fever abdominal pain, perineal complaints, breast complaints, incisional complaints, or anything else that concerned her. She was additionally instructed to have nothing in the vagina for at least 6 weeks time to include intercourse and to abstain from any heavy lifting over the same period of time. She was lastly instructed to do no driving until off of all pain medications or 2 weeks' time, whichever came first. She understood her instructions and agrees to follow up as noted above. Discharge medications included continued vitamins as well as [id number] analgesic pain medications. She was provided with a prescription for Howe 5/325 mg, 1-2 by mouth every 6 hours when necessary pain, #20 dispensed with no refills. Maternal blood type is A+ and rubella status is immune. Discharge hemoglobin and hematocrit were 13.4 and 41.2 respectively. Procedures: #1. Repeat low transverse section Patient Condition at Discharge: Stable Plan - Discharge Summary New Discharge Prescriptions: No Action Pnv No.95/Ferrous Fum/Folic AC [ Multivitamin Tablet] 1 each PO DAILY Omeprazole 20 mg PO DAILY Docusate [Colace] 100 mg PO DAILY Doxylamine Succinate [Unisom] 25 mg PO HS PRN PRN Reason: Insomnia buPROPion XL [Wellbutrin XL] 150 mg PO DAILY Discharge Medication List Doxylamine Succinate [Unisom] 25 mg PO HS PRN 03/15/21 [History] Docusate [Colace] 100 mg PO DAILY 09/30/21 [History] Omeprazole 20 mg PO DAILY 09/30/21 [History] Pnv No.95/Ferrous Fum/Folic AC [ Multivitamin Tablet] 1 each PO DAILY 09/30/21 [History] buPROPion XL [Wellbutrin XL] 150 mg PO DAILY 09/30/21 [History] Follow up Appointment(s)/Referral(s): Stacy Larson DO [Doctor of Osteopathic Medicine] - 11/15/21 11:15 am (C/S post op follow up appt-10/13/2021@9:00am) Reza Turner MD [STAFF PHYSICIAN] - 2 Weeks Discharge Disposition: HOME SELF-CARE
[2021-10-05] MEDS: SENNOSIDES-DOCUSATE SODIUM 1 EACH TAB PO SCH (11:58)
== END 2021-10-05 15:45 | disposition home or self-care (01) | DRG 788 ==
LOC: 4FBP 07:40
PROVIDERS: ADMIT Obstetrics & Gynecology; ATTEND Obstetrics & Gynecology
PROC: 10D00Z1 Extraction of Products of Conception, Low, Open Approach (ICD-10-PCS; principal; 2021-10-03 10:00)
DX: O34.211 Maternal care for low transverse scar from previous cesarean delivery (principal); Z37.0 Single live birth; Z3A.39 39 weeks gestation of pregnancy
CPT/HCPCS: 85025; 86850; 86900; 86901; 88302

== ENCOUNTER 2023-05-04 09:59 | Emergency (ER) | payer BC ==
[2023-05-04 10:35] VITALS: TEMP 98.1
--- NOTE | 2023-05-04 11:03 | ED ---
General Adult HPI - General Chief complaint: Nausea/Vomiting/Diarrhea Stated complaint: Weakness, 9 wks Time Seen by Provider: 05/04/23 11:04 Source: patient Mode of arrival: ambulatory Limitations: no limitations - History of Present Illness Initial comments: 32-year-old female presenting to the ED with a chief complaint of myalgias. Patient states that she is currently [address] Hatch. Has had US confirming IUP. Patient notes over the past few weeks has had difficulties with nausea and vomiting. However notes over the last 3 days has been unable to keep food down. Also notes that she has had some shakiness, cough, and myalgias as well. Has been taking Zofran with animal relief of the nausea. No vaginal bleeding. No abdominal pain. No chest pain or shortness of breath. No other complaints. - Related Data Home Medications Medication Instructions Recorded Confirmed Doxylamine Succinate [Unisom] 25 mg PO HS PRN 03/15/21 09/30/21 Docusate [Colace] 100 mg PO DAILY 09/30/21 09/30/21 Omeprazole 20 mg PO DAILY 09/30/21 09/30/21 Pnv No.95/Ferrous Fum/Folic AC 1 each PO DAILY 09/30/21 09/30/21 [ Multivitamin Tablet] buPROPion XL [Wellbutrin XL] 150 mg PO DAILY 09/30/21 09/30/21 Previous Rx's Medication Instructions Recorded Doxylamine Succinate/Vit B6 1 tab PO DIRECTED #120 tab 05/04/23 [Eugenio Callaway 10-10 mg Tablet] Allergies Allergy/AdvReac Type Severity Reaction Status Date / Time No Known Allergies Allergy Verified 05/04/23 10:28 Review of Systems ROS Statement: Those systems with pertinent positive or pertinent negative responses have been documented in the HPI. ROS Other: All systems not noted in ROS Statement are negative. Past Medical History Past Medical History: No Reported History Additional Past Medical History / Comment(s): hx CONSTIPATION , BLOOD IN STOOL. History of Any Multi-Drug Resistant Organisms: None Reported Past Surgical History: Section Additional Past Surgical History / Comment(s): TUBES IN EARS A CHILD, WISDOM TEETH Past Anesthesia/Blood Transfusion Reactions: Motion Sickness, No Reported Reaction Past Psychological History: No Psychological Hx Reported Smoking Status: Never smoker Past Alcohol Use History: None Reported Past Drug Use History: None Reported - Past Family History Father Family Medical History: Cancer Additional Family Medical History / Comment(s): prostate General Exam Limitations: no limitations General appearance: alert Eye exam: Present: normal appearance Neck exam: Present: normal inspection Respiratory exam: Present: normal lung sounds bilaterally Cardiovascular Exam: Present: regular rate, normal rhythm GI/Abdominal exam: Present: soft (No Tenderness to palpation. No rebound guarding or rigidity.) Extremities exam: Present: normal inspection Back exam: Present: normal inspection Neurological exam: Present: alert Skin exam: Present: warm Course Vital Signs 05/04/23 05/04/23 10:23 11:28 Temperature 98.1 F Pulse Rate 108 H 93 Respiratory 18 18 Rate Blood Pressure 102/69 123/75 O2 Sat by Pulse 95 97 Oximetry Medical Decision Making - Medical Decision Making Was pt. sent in by a medical professional or institution (Dr. PA, ASSOCIATE JAVA DEVELOPER, urgent care, hospital, or group home...) When possible be specific @ -No Did you speak to anyone other than the patient for history (EMS, parent, family, police, friend...)? What history was obtained from this source @ -No Did you review nursing and triage notes (agree or disagree)? Why? @ -I reviewed and agree with nursing and triage notes Were old charts reviewed (outside hosp., previous admission, EMS record, old EKG, old radiological studies, urgent care reports/EKG's, group home records)? Report findings @ -No old charts were reviewed Differential Diagnosis (chest pain, altered mental status, abdominal pain women, abdominal pain men, vaginal bleeding, weakness, fever, dyspnea, syncope, headache, dizziness, GI bleed, back pain, seizure, CVA, palpatations, mental health, musculoskeletal)? @ -Differential Fever: Pneumonia, viral URI, endocarditis, myocarditis, pericarditis, otitis, sinusitis, peritonsillar Abscess, retropharyngeal Abscess, epiglottitis, peritonitis, appendicitis, Mariela cystitis, diverticulitis, hepatitis, colitis, UTI, PID, TOA, pyelonephritis, prostatitis, epididymitis, meningitis, encepha litis, pulmonary embolism, CVA, thyroid storm, pancreatitis, adrenal crisis, cavernous sinus thrombosis, this is not meant to be an all-inclusive list. EKG interpreted by me (3pts min.). @ -None X-rays interpreted by me (1pt min.). @ -None done CT interpreted by me (1pt min.). @ -None done U/S interpreted by me (1pt. min.). @ -None done What testing was considered but not performed or refused? (CT, X-rays, U/S, labs)? Why? @ -None What meds were considered but not given or refused? Why? @ -None Did you discuss the management of the patient with other professionals (professionals i.e. DrHawa, PA, ASSOCIATE JAVA DEVELOPER, lab, RT, psych nurse, high school social science teacher, textile machinery sales representative, teacher, lead security officer, rn field case manager)? Give summary @ -No Was smoking cessation discussed for >3mins.? @ -No Was critical care preformed (if so, how long)? @ -No Were there social determinants of health that impacted care today? How? (Homelessness, low income, unemployed, alcoholism, drug addiction, transportation, low edu. Level, literacy, decrease access to med. care, skilled nursing, rehab)? @ -No Was there de-escalation of care discussed even if they declined (Discuss DNR or withdrawal of care, Hospice)? DNR status @ -No What co-morbidities impacted this encounter? (DM, HTN, Smoking, COPD, CAD, Cancer, CVA, ARF, Chemo, Hep., AIDS, mental health diagnosis, sleep apnea, morbid obesity)? @ -None Was patient admitted / discharged? Hospital course, mention meds given and route, prescriptions, significant lab abnormalities, going to OR and other pertinent info. @ -Discharge 32-year-old female presenting to the ED with complaints of nausea, vomiting, myalgias, cough. Has not had relief of nausea with Zofran prescribed to her by Dr. Hatch to presentation to the ED for further evaluation. Laboratory studies reviewed including CBC, CMP, UA, hCG quant. Labs unremarkable. HCG quant elevated as to be expected with her . Patient has already had ultrasound confirming IUP and has no complaints of abdominal pain or vaginal bleeding. Additionally, patient has no urinary complaints. Patient did test positive for COVID. Patient had improvement of symptoms in the ED with Zofran and IV fluids. Discharged home with prescription for dye clean just advised follow-up with her FINISH OFF OPERATOR. Patient by mouth challenged in the ED and was able to tolerate without difficulty. Discussed return precautions patient verbalizes agreement. Undiagnosed new problem with uncertain prognosis? @ -No Drug Therapy requiring intensive monitoring for toxicity (Heparin, Nitro, Insulin, Cardizem)? @ -No Were any procedures done? @ -No Diagnosis/symptom? @ -COVID Acute, or Chronic, or Acute on Chronic? @ -Acute Uncomplicated (without systemic symptoms) or Complicated (systemic symptoms)? @ -Uncomplicated Side effects of treatment? @ -No Exacerbation, Progression, or Severe Exacerbation? @ -No Poses a threat to life or bodily function? How? (Chest pain, USA, CT, pneumonia, PE, COPD, DKA, ARF, appy, cholecystitis, CVA, Diverticulitis, Homicidal, Suicidal, threat to staff... and all critical care pts) @ -No - Lab Data Result diagrams: 05/04/23 11:27 05/04/23 11:27 Lab Results 05/04/23 05/04/23 05/04/23 Range/Units 10:45 11:27 11:27 WBC 9.1 (3.8-10.6) k/uL RBC 4.83 (3.80-5.40) m/uL Hgb 13.8 (11.4-16.0) gm/dL Hct 40.5 (34.0-46.0) % MCV 84.0 (80.0-100.0) fL MCH 28.7 (25.0-35.0) pg MCHC 34.2 (31.0-37.0) g/dL RDW 11.9 (11.5-15.5) % Plt Count 328 (150-450) k/uL MPV 6.6 Neutrophils % 85 % Lymphocytes % 7 % Monocytes % 6 % Eosinophils % 1 % Basophils % 0 % Neutrophils # 7.8 H (1.3-7.7) k/uL Lymphocytes # 0.7 L (1.0-4.8) k/uL Monocytes # 0.5 (0-1.0) k/uL Eosinophils # 0.0 (0-0.7) k/uL Basophils # 0.0 (0-0.2) k/uL Sodium 134 L (137-145) mmol/L Potassium 3.9 (3.5-5.1) mmol/L Chloride 103 (98-107) mmol/L Carbon Dioxide 20 L (22-30) mmol/L Anion Gap 11 mmol/L BUN 7 (7-17) mg/dL Creatinine 0.68 (0.52-1.04) mg/dL Est GFR (CKD-EPI)AfAm >90 (>60 ml/min/1.73 sqM) Est GFR (CKD-EPI)NonAf >90 (>60 ml/min/1.73 sqM) Glucose 100 H (74-99) mg/dL Calcium 9.4 (8.4-10.2) mg/dL Total Bilirubin 0.7 (0.2-1.3) mg/dL AST 27 (14-36) U/L ALT 34 (4-34) U/L Alkaline Phosphatase 55 (38-126) U/L Total Protein 7.3 (6.3-8.2) g/dL Albumin 4.2 (3.5-5.0) g/dL HCG, Quant 808921.0 mIU/mL SARS-CoV-2 (PCR) Detected A (Not Detectd) Disposition Clinical Impression: COVID Disposition: HOME SELF-CARE Condition: Poor Instructions (If sedation given, give patient instructions): Acute Nausea and Vomiting (ED) Additional Instructions: Please return to the Emergency Department if symptoms worsen or any other concerns. Please follow up with your FINISH OFF OPERATOR. Prescriptions: Doxylamine Succinate/Vit B6 [Eugenio Callaway 10-10 mg Tablet] 1 tab PO DIRECTED #120 tab Is patient prescribed a controlled substance at d/c from ED?: No Referrals: New Wilkins DO [Primary Care Provider] - 1-2 days Time of Disposition: 13:59
[2023-05-04] MEDS ORDERED: SODIUM CHLORIDE 0.9% 1,000 ML IV STA (11:18)
[2023-05-04 11:42] LABS: Basophils % (A) 0 %; Eosinophils % (A) 1 %; HCT 40.5 % (34.0-46.0); HGB 13.8 gm/dL (11.4-16.0); Lymphocytes # (A) 0.7 k/uL (1.0-4.8); Lymphocytes % (A) 7 %; MCH 28.7 pg (25.0-35.0); MCHC 34.2 g/dL (31.0-37.0); Mean Platelet Volume 6.6; Monocytes # (A) 0.5 k/uL (0-1.0); Monocytes % (A) 6 %; Neutrophils # (A) 7.8 k/uL (1.3-7.7); Neutrophils % (A) 85 %; Platelet Count 328 k/uL (150-450); RBC 4.83 m/uL (3.80-5.40); RDW 11.9 % (11.5-15.5); WBC 9.1 k/uL (3.8-10.6)
[2023-05-04 11:52] LABS: ALT 34 U/L (4-34); AST 27 U/L (14-36); African American GFR (CKD) >90 (>60 ml/min/1.73 sqM); Albumin 4.2 g/dL (3.5-5.0); Alkaline Phosphatase 55 U/L (38-126); Anion Gap 11 mmol/L; Blood Urea Nitrogen 7 mg/dL (7-17); Calcium 9.4 mg/dL (8.4-10.2); Carbon Dioxide 20 mmol/L (22-30); Chloride 103 mmol/L (98-107); Glucose 100 mg/dL (74-99); Non-African American GFR(CKD) >90 (>60 ml/min/1.73 sqM); Potassium 3.9 mmol/L (3.5-5.1); Sodium 134 mmol/L (137-145); Total Bilirubin 0.7 mg/dL (0.2-1.3); Total Protein 7.3 g/dL (6.3-8.2)
[2023-05-04] MEDS ORDERED: ONDANSETRON 4 MG/2 ML VIAL IVP STA (12:14)
[2023-05-04] MEDS ORDERED: METOCLOPRAMIDE 5 MG/ML 2 ML VIAL IVP STA (13:59)
[2023-05-04 14:29] VITALS: BP 117/77; PULSE 109; RESP 16
== END 2023-05-04 14:35 | disposition home or self-care (01) ==
LOC: EC 09:59
DX: O98.511 Other viral diseases complicating pregnancy, first trimester (principal); U07.1 COVID-19; Z3A.09 9 weeks gestation of pregnancy
CPT/HCPCS: 36415; 80053; 85025; 84702; 87635; 99284; 96374; 96375; 96361; J2765; J2405

== ENCOUNTER 2023-11-21 08:53 | Inpatient (IN) | payer BC ==
[2023-11-21] MEDS ORDERED: CARBOPROST TROMETHAMINE 250 MCG/ML 1 ML AMP IM PRN (10:26)
[2023-11-21] MEDS ORDERED: TRANEXAMIC 1,000 MG/100ML-NACL 1,000 MG in EMPTY BAG 1 BAG IV PRN (10:26)
[2023-11-21] MEDS ORDERED: OXYTOCIN 10 UNIT/ML 1 ML VIAL IM PRN (10:26)
[2023-11-21] MEDS ORDERED: METHYLERGONOVINE 0.2 MG/ML 1 ML AMP IM PRN (10:26)
[2023-11-21] MEDS ORDERED: miSOPROStoL 200 MCG TAB PO PRN (10:26)
[2023-11-21] MEDS: LACTATED RINGERS 1,000 ML IV SCH ×2 (10:43→14:31)
[2023-11-21 10:54] LABS: Basophils % (A) 0 %; Eosinophils # (A) 0.2 k/uL (0-0.7); Eosinophils % (A) 2 %; HCT 34.5 % (34.0-46.0); HGB 11.5 gm/dL (11.4-16.0); Lymphocytes # (A) 1.8 k/uL (1.0-4.8); Lymphocytes % (A) 19 %; MCH 26.7 pg (25.0-35.0); MCHC 33.3 g/dL (31.0-37.0); MCV 79.9 fL (80.0-100.0); Mean Platelet Volume 7.7; Monocytes # (A) 0.7 k/uL (0-1.0); Monocytes % (A) 7 %; Neutrophils % (A) 71 %; Platelet Count 316 k/uL (150-450); RBC 4.32 m/uL (3.80-5.40); RDW 14.5 % (11.5-15.5); WBC 9.8 k/uL (3.8-10.6)
[2023-11-21] MEDS: CITRIC ACID-SODIUM CITRATE 15 ML CUP PO ONE (11:48)
[2023-11-21] MEDS ORDERED: NALBUPHINE 10 MG/ML (10 ML MDV) ONE (12:22)
[2023-11-21] MEDS ORDERED: ePHEDrine 50 MG/ML 1 ML VIAL ONE (12:22)
[2023-11-21] MEDS ORDERED: ONDANSETRON 4 MG/2 ML VIAL ONE (12:22)
[2023-11-21] MEDS ORDERED: MORPHINE SULFATE (PF) 0.3 MG/0.3 ML SYR ONE (12:22)
[2023-11-21] MEDS ORDERED: OXYTOCIN 30 UNITS/500 ML NS BAG IV ONE (12:22)
[2023-11-21] MEDS ORDERED: KETOROLAC 15 MG/ML 1 ML VIAL ONE (12:22)
[2023-11-21] MEDS ORDERED: NALOXONE 0.4 MG/ML 1 ML VIAL IV PRN (13:12)
[2023-11-21] MEDS ORDERED: diphenhydrAMINE 25 MG CAP PO PRN (13:12)
[2023-11-21] MEDS ORDERED: METOCLOPRAMIDE 5 MG/ML 2 ML VIAL IVP PRN (13:12)
[2023-11-21] MEDS ORDERED: ONDANSETRON 4 MG/2 ML VIAL IVP PRN (13:12)
[2023-11-21] MEDS ORDERED: diphenhydrAMINE 50 MG/ML 1 ML VIAL IVP PRN (13:12)
[2023-11-21] MEDS ORDERED: LANOLIN CREAM 1 GM TUBE TOPICAL PRN (13:12)
[2023-11-21] MEDS ORDERED: diphenhydrAMINE 50 MG CAP PO PRN (13:12)
[2023-11-21] MEDS ORDERED: ZOLPIDEM 5 MG TAB PO PRN (13:12)
--- NOTE | 2023-11-21 13:19 | P.HPOB ---
History of Present Illness H&P Date: 11/21/23 Chief Complaint: 39-0/7 weeks, previous section x 2, undesired fert ility The patient is a 33-year-old 3 para 2-0-0-2 admitted at 39-0/7 weeks as established by 7-week ultrasound. She is admitted for repeat low-transverse section with intraoperative bilateral tubal occlusion having had 2 previous sections and requesting intraoperative sterilization. Options for types of sterilization were discussed and the patient has requested Filshie clips. Her has been essentially uncomplicated though she did have some fairly significant nausea in the beginning which resolved eventually. On labor and delivery, all signs are reassuring with a category 1 heart rate tracing. Group B strep status is negative. Obstetrical history: 3 para 2-0-0-2 with 2 term sections as noted above. Current statistics are listed in history of present illness. EDC of 11/28/2023 was established by a 7-week ultrasound. Laboratory workup demonstrates a blood type of A+ with a negative antibody screen. Rubella status is immune. The remainder of the laboratory workup was within normal limits. Second trimester Glucola was normal and group B strep status is negative. Gynecologic history: Unremarkable with no history of any infections to include STDs. Review of Systems Review of systems is confined to history of present illness. Past Medical History Past Medical History: No Reported History Additional Past Medical History / Comment(s): hx CONSTIPATION , BLOOD IN STOOL. History of Any Multi-Drug Resistant Organisms: None Reported Past Surgical History: Section Additional Past Surgical History / Comment(s): TUBES IN EARS A CHILD, WISDOM TEETH Past Anesthesia/Blood Transfusion Reactions: Motion Sickness, No Reported Reaction Past Psychological History: No Psychological Hx Reported Smoking Status: Never smoker Past Alcohol Use History: None Reported Past Drug Use History: None Reported - Past Family History Mother Family Medical History: No Reported History Father Family Medical History: Cancer Additional Family Medical History / Comment(s): prostate Medications and Allergies Home Medications Medication Instructions Recorded Confirmed Type Omeprazole 20 mg PO DAILY 09/30/21 11/21/23 History Pnv No.95/Ferrous Fum/Folic AC 1 each PO DAILY 09/30/21 11/21/23 History [ Multivitamin Tablet] Sertraline HCl [Zoloft] 50 mg PO DAILY 11/20/23 11/21/23 History Allergies Allergy/AdvReac Type Severity Reaction Status Date / Time No Known Allergies Allergy Verified 11/21/23 10:25 Exam Vital Signs Temp Pulse Resp Pulse Ox 11/21/23 10:18 97.4 F L 66 18 97 Intake and Output 11/20/23 11/21/23 11/21/23 22:59 06:59 14:59 Other: Weight 99.79 kg In general, this is a well-developed, well-nourished white female in no acute distress. Her heart has a regular rhythm and rate without murmur. Her lungs are clear to auscultation bilaterally in all loomis. Her abdomen is gravid, nondistended, has normal active bowel sounds, soft, nontender, and without any palpable masses aside from uterine fundus. Her extremities are without any cyanosis, clubbing, or edema and are nontender to palpation bilaterally. Digital cervical examination is deferred. Results Result Diagrams: 11/21/23 10:41 Abnormal Lab Results - Last 24 Hours (Table) 11/21/23 Range/Units 10:41 MCV 79.9 L (80.0-100.0) fL Assessment and Plan (1) Previous section Current Visit: No Status: Acute Code(s): Z98.891 - HISTORY OF UTERINE SCAR FROM PREVIOUS SURGERY SNOMED Code(s): 477441891 (2) Family planning Current Visit: Yes Status: Acute Code(s): Z30.09 - ENCOUNTER FOR OT GENERAL CNSL AND ADVICE ON CONTRACEPTION SNOMED Code(s): 442635452 Plan: The patient is admitted for repeat low-transverse section with intraoperative bilateral tubal occlusion with Filshie clips. She was given options for types of sterilization and opted for this method. The risks and complications of the procedures were thoroughly discussed and she has understood and agreed to proceed.
--- NOTE | 2023-11-21 13:25 | P.OP ---
Date of Procedure: 11/21/23 Preoperative Diagnosis: #1. 39-0/7 weeks, previous section x 2 #2. Undesired fertility Postoperative Diagnosis: Same Procedure(s) Performed: #1. Repeat low-transverse section #2. Intraoperative bilateral tubal occlusion with Filshie clips Anesthesia: spinal Surgeon: Reza Turner Sheet Layer #1: Dary Jacobs Estimated Blood Loss (ml): 439 IV fluids (ml): 600 Urine output (ml): 300 Pathology: none sent Condition: stable Disposition: floor Operative Findings: Intraoperatively, the patient was delivered by repeat low-transverse section of a viable 8 pound 10 ounce baby boy with Apgars of 8 at 1 minute and 9 at 5 minutes in the direct occiput anterior position. We did require the use of a mighty VAC vacuum in order to elevate the head through the incision secondary to lack of engagement in the pelvis. The placenta was delivered manually, intact, grossly normal with a grossly normal but very long three-vessel cord. The uterus, tubes, and ovaries were entirely normal to inspection. A Filshie clip was firmly placed across the isthmic portion of the fallopian tube on each side approximately 2 to 3 cm from the cornu. There was a moderate amount of scarring at the level of the fascia and rectus muscles but otherwise no issues of that sort intra-abdominal he. Description of Procedure: The patient was prepped and draped in usual fashion after spinal anesthesia was administered by the anesthesiologist. A Pfannenstiel incision was made through pre-existing scar and extended into the abdominal cavity without significant difficulty. There was a moderate amount of scarring encountered at the level of the fascia and rectus muscles. As a bladder peritoneum was scarred slightly higher on the lower uterine segment, it was elevated, incised, and reflected distally. A 2 cm incision was made in the transverse plane of the lower uterine segment to enter the uterus at which time clear fluid was noted. The incision was extended both directions using the bandage scissors. Attempts to deliver the head up and through the incision manually failed secondary to lack of engagement in the pelvis and a vacuum was applied to the occiput which allowed easy delivery of the head up and through the incision where the nose and mouth were then thoroughly suctioned. There was a nuchal cord x 1 which was reduced on the field prior to delivery of the . The remainder of the infant was delivered onto the field where the cord was doubly clamped, cut, and the infant passed for resuscitative measures with weight and Apgars as noted above. A segment of cord was doubly clamped, cut, and set aside should cord gases become necessary. The placenta was delivered manually and intact as noted above. The uterus was exteriorized and the anterior cavity the uterus swept of any remaining placental or membranous fragments. The margins of the uterine incision were grasped with Moore clamps and the incision was closed in a single running locking stitch of 0 chromic catgut from margin to margin. The posterior cul-de-sac was suctioned with a guard. The patient was again questioned as to whether she desired permanent sterilization to which she replied that she did. A Filshie clip was then firmly placed across the isthmic portion of each fallopian tube approximately 2 to 3 cm from the cornu. The uterus was replaced within the abdominal cavity and there was a small point of bleeding noted at the right angle of the incision which was made hemostatic with a cjgklc-le-rpgel stitch of 0 chromic catgut. Hemostasis at that point was excellent. The gutters were swept of any remaining blood, fluid, or clot. Reexamination the incision demonstrated excellent hemostasis. The parietal peritoneum was loosely reapproximated and the layer of muscles examined and found to be hemostatic. The fascia was closed with 2 running stitches of 0 Vicryl proceeding from the lateral margins to the midpoint. The subcutaneous tissues were irrigated, made hemostatic with the Bovie, and reapproximated with a running stitch of 3-0 plain catgut. The skin was reapproximated with a running subcuticular stitch of 4-0 Vicryl followed by half-inch Steri-Strips placed with Mastisol. Quantitative blood loss for the case was 439 mL. There were no complications. All sponge, instrument, and needle counts were correct. The patient tolerated the procedure well and proceeded to the recovery room in stable condition. Both mother and are resting comfortably in recovery.
[2023-11-21] MEDS: OXYTOCIN 30 UNITS/500 ML NS 30 UNIT in SALINE 1 500ML.BAG IV SCH (13:46)
[2023-11-21] MEDS: ACETAMINOPHEN TAB 500 MG TAB PO SCH (16:12)
[2023-11-21] MEDS: diphenhydrAMINE 50 MG/ML 1 ML VIAL IVP PRN (18:28)
[2023-11-21] MEDS: KETOROLAC 15 MG/ML 1 ML VIAL IVP PRN (19:03)
[2023-11-21] MEDS: IBUPROFEN 600 MG TAB PO SCH (20:47)
[2023-11-21] MEDS: SENNOSIDES-DOCUSATE SODIUM 1 EACH TAB PO SCH (20:53)
[2023-11-22 00:34] VITALS: RESP 16
[2023-11-22 06:06] LABS: Basophils % (A) 0 %; Eosinophils # (A) 0.1 k/uL (0-0.7); Eosinophils % (A) 0 %; HCT 30.2 % (34.0-46.0); Hypochromasia Slight; Lymphocytes # (A) 1.7 k/uL (1.0-4.8); Lymphocytes % (A) 14 %; MCH 26.7 pg (25.0-35.0); MCHC 31.9 g/dL (31.0-37.0); MCV 83.7 fL (80.0-100.0); Mean Platelet Volume 8.4; Monocytes # (A) 0.9 k/uL (0-1.0); Monocytes % (A) 7 %; Neutrophils # (A) 9.5 k/uL (1.3-7.7); Neutrophils % (A) 78 %; Platelet Count 225 k/uL (150-450); RBC 3.61 m/uL (3.80-5.40); RDW 14.6 % (11.5-15.5); WBC 12.2 k/uL (3.8-10.6)
[2023-11-22 06:07] LABS: HGB 9.7 gm/dL (11.4-16.0)
--- NOTE | 2023-11-22 09:35 | P.PNOBGPC ---
Subjective - Subjective Interval history: The patient has been unable to void spontaneously since catheter removal. Patient reports: Reports appetite normal, Reports pain well controlled, Reports ambulating normally : doing well Objective - Vital Signs Latest vital signs: Vital Signs Temp Pulse Resp BP Pulse Ox 11/22/23 08:00 98.0 F 77 16 101/62 97 11/22/23 00:00 97.9 F 80 16 112/65 11/21/23 20:00 97.7 F 89 18 111/68 100 11/21/23 17:03 18 11/21/23 16:00 96.7 F L 62 16 123/63 98 11/21/23 15:16 96.6 F L 55 L 18 123/68 97 11/21/23 15:01 96.6 F L 61 18 118/61 97 11/21/23 14:46 96.6 F L 61 18 123/63 97 11/21/23 14:31 66 18 115/59 11/21/23 14:16 96.3 F L 64 18 128/65 98 11/21/23 13:59 96.6 F L 65 18 123/62 98 11/21/23 13:44 96.3 F L 69 18 140/65 98 11/21/23 13:31 65 18 117/63 97 11/21/23 13:16 96.6 F L 66 18 108/58 97 11/21/23 10:18 97.4 F L 66 18 97 Intake and Output 11/21/23 11/22/23 11/22/23 22:59 06:59 14:59 Intake Total 200 1500 Output Total 860 550 Balance -660 950 Intake: IV 200 Oral 1500 Output: Urine 425 550 Straight 550 Emesis 200 Output, Quantitative 235 Blood Loss Other: Voiding Method Indwelling Catheter - Exam Extremities: Present: normal Abdomen: Present: normal appearance, soft. Absent: distention, tenderness Incision: Present: normal, dry, intact Uterus: Present: normal, firm (The uterine fundus is tonic and appropriately tender well below the umbilicus.) - Labs Labs: Abnormal Lab Results - Last 24 Hours (Table) 11/21/23 11/22/23 Range/Units 10:41 04:30 WBC 12.2 H (3.8-10.6) k/uL RBC 3.61 L (3.80-5.40) m/uL Hgb 9.7 L D (11.4-16.0) gm/dL Hct 30.2 L (34.0-46.0) % MCV 79.9 L (80.0-100.0) fL Neutrophils # 9.5 H (1.3-7.7) k/uL Assessment and Plan (1) Previous section Current Visit: Yes Status: Acute Code(s): Z98.891 - HISTORY OF UTERINE SCAR FROM PREVIOUS SURGERY SNOMED Code(s): 150619157 (2) Family planning Current Visit: Yes Status: Acute Code(s): Z30.09 - ENCOUNTER FOR [facility] AND ADVICE ON CONTRACEPTION SNOMED Code(s): 056303060 (3) Status post section Current Visit: Yes Status: Acute Code(s): Z98.891 - HISTORY OF UTERINE SCAR FROM PREVIOUS SURGERY SNOMED Code(s): 007027962 Plan: Continue routine and postoperative care. I have encouraged the patient ambulate in the hallways routinely. We will use the uroscan device to ensure that the patient is not having urinary retention while she attempts to void spontaneously.
--- NOTE | 2023-11-22 13:09 | P.PN ---
Progress Note - Text Progress Note Date: 11/22/23 Anesthesia Postop day 1 Subjective: Status Post section with Duramorph. Patient seen and examined. Doing well without complaint. VAS 4/10. 1 episode of vomiting yesterday. Now resolved. No pruritus. Denies fever. Gross lower extremity strength intact. Without apparent anesthetic complications. Objective: Vital signs reviewed Heart: Regular Rate Lungs: Good chest excursion Abdomen: Appears nondistended Assessment: Status post section with Duramorph postop day 1 Plan: 1. Continue current care with your medical management. Anticipated end to the duration of the Duramorph around surgery time today. You may see increased pain needs around this time. 2. This note was dictated using [employer] software. Please be advised there is a potential for misspellings or errors in plant technician.
[2023-11-22] MEDS: SIMETHICONE 80 MG CHEWABLE PO PRN (20:21)
[2023-11-23 10:03] VITALS: BP 115/70; PULSE 75; TEMP 97.5
--- NOTE | 2023-11-23 10:21 | P.DS ---
Providers Date of admission: 11/21/23 10:05 Expected date of discharge: 11/23/23 Attending physician: Reza Turner Primary care physician: Stated None - Discharge Diagnosis(es) (1) Previous section Current Visit: Yes Status: Acute (2) Family planning Current Visit: Yes Status: Acute (3) Status post section Current Visit: Yes Status: Acute Hospital Course: The patient is a 33-year-old 3 para 2-0-0-2 admitted at 39-0/7 weeks by good dating parameters. She is admitted for repeat low-transverse section with intraoperative tubal occlusion using Filshie clips. She has a history of 2 previous sections and has had an uncomplicated . On labor and delivery, all signs are reassuring with a category 1 heart rate tracing. Group B strep status is negative. She was taken to the operating room where she underwent repeat low-transverse section with intraoperative bilateral tubal occlusion using Filshie clips in an uncomplicated fashion. She was delivered of a viable 8 pound 10 ounce baby boy with Apgars of 8 at 1 minute and 9 at 5 minutes. Her and postoperative course was unremarkable with vital signs remaining stable and her temperature was afebrile throughout. She was deemed stable for discharge on and postoperative day #2 and was discharged home to follow-up in the office in 2 weeks for an incision check in 6 weeks routinely. Discharge instructions included calling for any significantly increased bleeding or foul-smelling lochia, significantly increased fever or abdominal pain, perineal complaints, breast complaints, incisional complaints, or anything else that concerned her. She was additionally instructed to have nothing in the vagina for at least 6 weeks time to include intercourse and to abstain from any heavy lifting over the same period of time. She was lastly instructed to do no driving until off of all pain medications or 2 weeks time, whichever came first. She understood her instructions and agrees to follow-up as noted above. Discharge medications included continued vitamins as she has opted to breast-feed. She was otherwise to use [id number] analgesic pain medications but was additionally provided with a prescription for oxycodone 5 mg, 1-2 p.o. every 6 hours as needed pain, #20 dispensed with no refills. Maternal blood type is a positive and rubella status is immune. Discharge hemoglobin and hematocrit were 9.7 and 30.2 respectively. As a result, she was counseled to take iron sulfate over the next month daily to rebuild her hemoglobin. Procedures: #1. Repeat low-transverse section #2. Intraoperative bilateral tubal occlusion using Filshie clips Patient Condition at Discharge: Stable Plan - Discharge Summary Discharge Rx Participant: No New Discharge Prescriptions: No Action Pnv No.95/Ferrous Fum/Folic AC [ Multivitamin Tablet] 1 each PO DAILY Omeprazole 20 mg PO DAILY Sertraline HCl [Zoloft] 50 mg PO DAILY Discharge Medication List Omeprazole 20 mg PO DAILY 09/30/21 [History] Pnv No.95/Ferrous Fum/Folic AC [ Multivitamin Tablet] 1 each PO DAILY 09/30/21 [History] Sertraline HCl [Zoloft] 50 mg PO DAILY 11/20/23 [History] Follow up Appointment(s)/Referral(s): Reza Turner MD [STAFF PHYSICIAN] - 01/07/24 10:15 am (Post C/S Appointment 12-03-2023 at 11:15) Discharge Disposition: HOME SELF-CARE
== END 2023-11-23 12:45 | disposition home or self-care (01) | DRG 785 ==
LOC: 4FBP 10:05
PROVIDERS: ADMIT Obstetrics & Gynecology; ATTEND Obstetrics & Gynecology
PROC: 10D00Z1 Extraction of Products of Conception, Low, Open Approach (ICD-10-PCS; principal; 2023-11-22)
PROC: 0UL70CZ Occlusion of Bilateral Fallopian Tubes with Extraluminal Device, Open Approach (ICD-10-PCS; principal; 2023-11-22)
DX: O34.211 Maternal care for low transverse scar from previous cesarean delivery (principal); Z30.2 Encounter for sterilization; O69.81X0 Labor and delivery complicated by cord around neck, without compression, not applicable or unspecified; Z28.310 Unvaccinated for COVID-19; Z79.899 Other long term (current) drug therapy; Z3A.39 39 weeks gestation of pregnancy; Z37.0 Single live birth
CPT/HCPCS: 85025; 86850; 86900; 86901